=== PATIENT | female | born 2005 | race Hispanic/Latino ===

== ENCOUNTER 2025-02-14 07:56 | Emergency (ER) | payer MEDICAID ==
[2025-02-14] MEDS ORDERED: diphenhydrAMINE 25 MG CAP ONE (09:53)
== END 2025-02-14 10:07 | disposition home or self-care (01) ==
LOC: ERS 07:56
DX: L50.9 Urticaria, unspecified (principal)
CPT/HCPCS: 96372; 99282; J2919